=== PATIENT | male | born 1955 | race African-American/Black ===

== ENCOUNTER → 2016-05-08 | Day surgery (SDC) | payer BC ==
[~2016-05-08] VITALS: Ht 182.9 cm; Wt 131.7 kg
[~2016-05-08] MED LIST: ACETAMINOPHEN500 M1 PO; ALDACTONE25 MG PO; ASCORBIC ACID500 MG PO; ASPIRIN EC81 MG PO; ASPIRIN325 MG PO; ATIVAN 1 MG1 MG PO; BYSTOLIC10 MG PO; CARAFATE1 GM PO; CORICIDIN HBP1 EACH PO; COUMADIN ** IA5 MG PO; COZAAR25 MG PO; COZAAR50 MG PO; CPAP INH; FLEXERIL10 MG PO; GLUCOPHAGE1000 MG PO; GLUCOPHAGE500 MG PO; GLUCOSAMINE CO1 EAC1 PO; IRON325 M1 PO; JANUVIA100 MG PO; JANUVIA50 MG PO; LASIX20 MG PO; LEXAPRO20 MG PO; LOVENOX 10100 MG/1 M SUB-Q; MULTAQ400 MG PO; NEURONTIN100 MG PO; NEURONTIN300 MG PO; NEURONTIN600 MG PO; NEXIUM40 MG PO; OMEPRAZOLE20 M1 PO; OSTEO BI-FLEX1 EAC1 PO; PERCOCET 10-321 EACH PO; RANEXA ER500 MG PO; ULTRAM50 MG PO; VITAMIN B-122000 MC1 PO; VITAMIN D-32000 UNI1 PO; XARELTO20 MG PO
== END | disposition disaster alternative care site (69) ==
LOC: GPOC 05-04 16:00 → GEND 08:59 → GPOC 08:59
PROC: 0DJD8ZZ Inspection of Lower Intestinal Tract, Via Natural or Artificial Opening Endoscopic (ICD-10-PCS; principal; 2016-05-08)
DX: K57.30 Diverticulosis of large intestine without perforation or abscess without bleeding (principal); Z86.010 Personal history of colon polyps; I11.0 Hypertensive heart disease with heart failure; I50.9 Heart failure, unspecified; I48.91 Unspecified atrial fibrillation; I25.10 Atherosclerotic heart disease of native coronary artery without angina pectoris; E11.9 Type 2 diabetes mellitus without complications; G47.33 Obstructive sleep apnea (adult) (pediatric); Z93.3 Colostomy status; Z88.0 Allergy status to penicillin; Z79.82 Long term (current) use of aspirin; Z79.899 Other long term (current) drug therapy
CPT/HCPCS: J2001; J7030